=== PATIENT | male | born 1975 | race Caucasian/White ===

== ENCOUNTER 2017-05-16 23:56 | Emergency (ER) | payer SELFPAY ==
[~2017-05-16] VITALS: Ht 177.8 cm; Wt 99.8 kg
[~2017-05-16 23:56] MED LIST: ANAPROX DS550 MG PO; BENTYL10 MG PO; CIPROFLOXACIN500 MG PO; ERY-TAB500 MG PO; FLAGYL500 MG PO; FLEXERIL10 MG PO; HYDROCODONE BIT1 T11 PO; MEDROL DOSEPAK4 MG PO; MOTRIN800 MG PO; NKHM; ROBITUSSIN AC 110 ML PO; SEPTRA DS 800 M1 TAB PO; VIBRAMYCIN100 MG PO; VICODIN 5/500 505 MG PO; ZOFRAN ODT4 MG SL
[2017-05-17 00:29] LABS: BILIRUBIN NEGATIVE (NEGATIVE); BLOOD NEGATIVE (NEGATIVE); CLARITY CLEAR (CLEAR); COLOR YELLOW (YELLOW); GLUCOSE NEGATIVE (NEGATIVE); KETONE TRACE (NEGATIVE); LEUKO ESTERASE NEGATIVE (NEGATIVE); NITRITE NEGATIVE (NEGATIVE); SPECIFIC GRAVITY 1.015 (1.005-1.030); UROBILINOGEN 0.2 E.U./dl (0.2-1.0)
[2017-05-17 00:53] LABS: RBC 0-2 rbc/hpf (0-2); WBC 0-2 wbc/hpf (0-5)
[2017-05-17 01:58] LABS: BASO # 0.1 10*3/uL (0.0-0.1); BASO % 1.1 % (0.0-1.0); EOS # 0.3 10*3/uL (0.0-0.4); EOS % 3.1 % (1.0-4.0); HEMATOCRIT 47.7 % (42.0-52.0); HEMOGLOBIN 17.3 g/dl (14.0-18.0); LYMPH # 3.5 10*3/uL (1.3-4.4); MEAN CORPUSCULAR HGB 31.6 pg (27.0-31.0); MEAN CORPUSCULAR HGB CONC 36.3 g/dl (33.0-37.0); MEAN PLATELET VOLUME 9.4 fl (9.6-12.3); MONO # 0.8 10*3/uL (0.1-1.0); MONO % 8.6 % (3.0-9.0); NEUT # 4.5 10*3/uL (2.3-7.9); NEUT % 48.9 % (47.0-73.0); PLATELET COUNT AUTOMATED 253 10*3/uL (130-400); RED BLOOD COUNT 5.48 10*6/uL (4.50-5.90); RED CELL DISTRI WIDTH 12.1 % (0-14.5); WHITE BLOOD COUNT 9.2 10*3/uL (4.8-10.8)
[2017-05-17 02:10] LABS: BUN 10 mg/dl (7-24); CHLORIDE 104 mmol/L (98-107); CREATININE 0.96 mg/dL (0.70-1.30); POTASSIUM 4.2 mmol/L (3.5-5.1); SODIUM 140 mmol/L (136-145)
[2017-05-17] MEDS ORDERED: KETOROLAC10 MG PO (03:14)
[2017-05-17] MEDS ORDERED: KEFLEX500 M1 PO (03:14)
[2017-05-17] MEDS ORDERED: FLAGYL500 MG PO (03:14)
== END 2017-05-17 03:23 | disposition home or self-care (01) ==
LOC: ED 23:56
PROVIDERS: Emergency Medicine Emergency Medical Services
DX: K52.9 Noninfective gastroenteritis and colitis, unspecified (principal); F17.200 Nicotine dependence, unspecified, uncomplicated

== ENCOUNTER 2018-09-27 17:45 | Emergency (ER) | payer BC ==
[~2018-09-27] VITALS: Ht 175.2 cm; Wt 99.8 kg
[~2018-09-27 17:45] MED LIST changes: +KEFLEX500 M1 PO; +KETOROLAC10 MG PO; +ZOFRAN4 MG PO
[2018-09-27 19:15] LABS: BASO # 0.1 10*3/uL (0.0-0.1); BASO % 1.1 % (0.0-1.0); EOS # 0.3 10*3/uL (0.0-0.4); HEMATOCRIT 49.8 % (42.0-52.0); HEMOGLOBIN 17.2 g/dl (14.0-18.0); LYMPH # 2.8 10*3/uL (1.3-4.4); MEAN CELL VOLUME 92.9 fl (80.0-94.0); MEAN CORPUSCULAR HGB 32.1 pg (27.0-31.0); MEAN CORPUSCULAR HGB CONC 34.5 g/dl (33.0-37.0); MEAN PLATELET VOLUME 9.8 fl (9.6-12.3); MONO # 0.9 10*3/uL (0.1-1.0); MONO % 9.5 % (3.0-9.0); NEUT % 55.1 % (47.0-73.0); PLATELET COUNT AUTOMATED 215 10*3/uL (130-400); RED BLOOD COUNT 5.36 10*6/uL (4.50-5.90); RED CELL DISTRI WIDTH 12.5 % (0-14.5); WHITE BLOOD COUNT 9.1 10*3/uL (4.8-10.8)
[2018-09-27 19:31] LABS: ALBUMIN 3.9 gm/dl (3.1-4.5); ALKALINE PHOSPHATASE 77 U/L (45-117); BUN 10 mg/dl (7-24); CHLORIDE 104 mmol/L (98-107); CREATININE 0.91 mg/dL (0.70-1.30); SGOT/AST 30 IU/L (3-35); SGPT/ALT 63 U/L (12-78); SODIUM 139 mmol/L (136-145); TOTAL PROTEIN 7.3 gm/dL (6.4-8.2)
== END 2018-09-27 20:05 | disposition home or self-care (01) ==
LOC: ED 17:45
PROVIDERS: Nurse Practitioner Family
DX: G47.00 Insomnia, unspecified (principal); H93.11 Tinnitus, right ear; M79.621 Pain in right upper arm; F17.200 Nicotine dependence, unspecified, uncomplicated; Z79.2 Long term (current) use of antibiotics; Z79.899 Other long term (current) drug therapy

== ENCOUNTER 2018-12-14 22:06 | Emergency (ER) | payer BC ==
[~2018-12-14] VITALS: Wt 99.8 kg
[2018-12-14] MEDS ORDERED: TESSALON PERLE100 MG PO (23:34)
[2018-12-14] MEDS ORDERED: CLARITIN10 MG PO (23:34)
[2018-12-14] MEDS ORDERED: PROAIR HFA8.5 GM INH (23:34)
== END 2018-12-14 23:48 | disposition home or self-care (01) ==
LOC: ED 22:06
DX: J06.9 Acute upper respiratory infection, unspecified (principal); F17.200 Nicotine dependence, unspecified, uncomplicated

== ENCOUNTER 2019-08-12 18:30 | Emergency (ER) | payer BC ==
[~2019-08-12 18:30] MED LIST changes: +CLARITIN10 MG PO; +PROAIR HFA8.5 GM INH; +TESSALON PERLE100 MG PO
[2019-08-12] MEDS ORDERED: CLINDAMYCIN HC300 MG PO (18:51)
[2019-08-12] MEDS ORDERED: IBU600 M1 PO (18:52)
== END 2019-08-12 19:27 | disposition home or self-care (01) ==
LOC: ED 18:30
DX: K04.7 Periapical abscess without sinus (principal); Z79.899 Other long term (current) drug therapy

== ENCOUNTER 2023-12-06 12:02 | Emergency (ER) | payer SELFPAY ==
[~2023-12-06] VITALS: Ht 172.7 cm; Wt 90.7 kg
[~2023-12-06 12:02] MED LIST changes: +CLINDAMYCIN HC300 MG PO; +IBU600 M1 PO
[2023-12-06] MEDS ORDERED: PENICILLIN VK500 MG PO (12:14)
== END 2023-12-06 12:21 | disposition home or self-care (01) ==
LOC: ED 12:02
DX: K08.89 Other specified disorders of teeth and supporting structures (principal); Z98.890 Other specified postprocedural states

== ENCOUNTER 2024-02-25 16:36 | Emergency (ER) | payer OTHER ==
[~2024-02-25] VITALS: Ht 177.8 cm; Wt 108.0 kg
[~2024-02-25 16:36] MED LIST changes: +PENICILLIN VK500 MG PO
[2024-02-25] MEDS ORDERED: ACETAMINOPHEN-CODEIN (16:50)
[2024-02-25] MEDS ORDERED: PENICILLIN VK500 MG PO (16:51)
[2024-02-25] MEDS ORDERED: AMOX-CLAV 875-1 EACH PO (17:22)
[2024-02-25] MEDS ORDERED: CETRAXAL1 EACH OT (17:22)
== END 2024-02-25 17:41 | disposition home or self-care (01) ==
LOC: ED 16:36
DX: H66.91 Otitis media, unspecified, right ear (principal); H60.91 Unspecified otitis externa, right ear; Z98.890 Other specified postprocedural states